=== PATIENT | male | born 1985 | race Two or more races ===

== ENCOUNTER 2019-11-06 15:42 | Emergency (ER) | payer OTHER ==
--- NOTE | 2019-11-06 16:57 | PDOC ---
History of Present Illness - General Chief Complaint: Allergic Reaction Stated Complaint: DYSTONIC REACTION Time Seen by Provider: 11/06/19 16:56 - History of Present Illness Initial Comments: 11/06/19 17:34 HPI: 34 y/o M with hx of IV heroine use presenting from [facility] for dystonic reaction. He reports that he was at [facility] yesterday and received methadone. It appears he was agitated and also received ativan and fluphenazine (hx of dystonia on haldol). This morning patient was noted with dystonic rxn including tongue biting, increased salivation, and "felt like my face was having a seizure." He was sent from [facility] for dystonia and methadone; according to [facility], they do not admit for detox for patient already on a methadone program, despite still using IV heroine. He last used IVheroine 2 days ago. En route, he received 50mg benadryl and 2.5mg versed by EMS. He is currently sleepy but appropriate and arousable and asnwers all questions. He has no current complaints. He states the reaction has resolved but feels sleepy. Denies fever, PRAJAPATI, LH, chest pain, SOB, abd pain, n/v. PMHx: as noted above ROS: as noted SHx: 1ppd tobacco use; no alcohol use; IV heroine Allergies: NKDA ROS: GENERAL/CONSTITUTIONAL: No fever; +chills. No weakness. HEAD, EYES, EARS, NOSE AND THROAT: No change in vision. No ear pain or discharge. No sore throat. CARDIOVASCULAR: No chest pain or shortness of breath RESPIRATORY: No cough, wheezing, or hemoptysis. GASTROINTESTINAL: No nausea, vomiting, diarrhea or constipation. GENITOURINARY: No dysuria, frequency, or change in urination. MUSCULOSKELETAL: No joint or muscle swelling or pain. No neck or back pain. SKIN: No rash NEUROLOGIC: No headache, vertigo, loss of consciousness, or change in strength/ sensation. ENDOCRINE: No increased thirst. No abnormal weight change HEMATOLOGIC/LYMPHATIC: No anemia, easy bleeding, or history of blood clots. ALLERGIC/IMMUNOLOGIC: No hives or skin allergy. PE: GENERAL: Awake, sleepy but arousable and a&ox3, no acute distress HEAD: No signs of trauma, normocephalic, atraumatic EYES: EOMI, sclera anicteric, conjunctiva clear ENT: Auricles normal inspection, hearing grossly normal, nares patent, oropharynx clear without exudates. Moist mucosa NECK: Normal ROM, no lymphadenopathy LUNGS: No increased work of breathing, symmetrical chest rise, clear to auscultation bilaterally, no wheezes, crackles or rhonchi HEART: Regular rate, regular rhythm, normal S1 and S2, no murmur, peripheral pulses 2+ and equal bilaterally. ABDOMEN: Soft, nondistended, nontender, normoactive bowel sounds. No guarding, no rebound. No masses. No CVAT MUSCULOSKELETAL: FROM. track curiel on BL arms NEUROLOGICAL: Cranial nerves II through XII grossly intact. Normal speech, normal gait, no focal sensorimotor deficits SKIN: Warm, Dry, normal turgor, no rashes or lesions noted Medical Decision Making - Medical Decision Making 11/06/19 17:40 34 y/o M with hx of IV heroine use presenting from [facility] for dystonic reaction, now resolved following 50mg benadryl and 2.5mg versed by EMS. Currently with no complaints. HR 120, normotensive, AF. PE with rigors, but otherwise unremarkable. -will allow for versed to wear off and then DC to followup with [facility] for further methadone tapering 11/06/19 19:19 patient given info for [facility] and will DC with [facility] to followup with methadone program n the AM patient ambulating without assist, a&ox3, tolerating PO and appropriate Discharge - Discharge Information Problems reviewed: Yes Clinical Impression/Diagnosis: Dystonic drug reaction Condition: Stable Disposition: HOME - Follow up/Referral Referrals: ON STAFF,NOT [Primary Care Provider] - - Patient Discharge Instructions Patient Printed Discharge Instructions: Focal Dystonia Additional Instructions: Additional Instructions: Please return to the emergency department with any new or worsening symptoms or concerns. Please follow up with the methadone program tomorrow morning for tapering and detox - Post Discharge Activity
[2019-11-06 18:17] VITALS: BP 124/81; PULSE 120; TEMP 97.1; BMI 25.8
--- NOTE | 2019-11-06 18:34 | PDOC ---
Documentation entered by Noemí Frausto SCRIBE, acting as scribe for Tatianna Alcala MD. Tatianna Alcala MD: This documentation has been prepared by the Jett gilbert Xhesika, SCRIBE, under my direction and personally reviewed by me in its entirety. I confirm that the documentation accurately reflects all work, treatment, procedures, and medical decision making performed by me. Attending Attestation - Resident Resident Name: Elizabeth Cole - HPI HPI: 11/06/19 17:38 The patient is a 34 year old male with a significant PMH of heroin use (on methadone but buys heroin on the streets) who presents to the emergency department BIBA s/p dystonic reaction. Pt states he received prolixin during intake at [facility] and developed a dystonic reaction. Per EMS, patient received 50mg Benadryl and 2.5 versed and symptoms have since resolved. The patient denies chest pain, shortness of breath, headache and dizziness. Denies fever, chills, cough, nausea, vomiting, diarrhea and constipation. Allergies: haldol Social Hx: heroin use - Physicial Exam PE: 11/06/19 17:39 GENERAL: Awake, alert, conversent. +shaky. +disheveled. HEAD: No signs of trauma EYES: PERRLA, EOMI, sclera anicteric, conjunctiva clear ENT: Auricles normal inspection, hearing grossly normal, nares patent, oropharynx clear without exudates. Moist mucosa NECK: Normal ROM, supple, no lymphadenopathy, JVD, or masses LUNGS: Breath sounds equal, clear to auscultation bilaterally. No wheezes, and no crackles HEART: Regular rate and rhythm, normal S1 and S2, no murmurs, rubs or gallops ABDOMEN: Soft, nontender, normoactive bowel sounds. No guarding, no rebound. No masses EXTREMITIES: Normal range of motion, no edema. No clubbing or cyanosis. No cords, erythema, or tenderness NEUROLOGICAL: Cranial nerves II through XII grossly intact. +unsteady gait SKIN: Warm, Dry, normal turgor. +b/l upper extremity (arms) track curiel. - Medical Decision Making 11/06/19 18:32 [facility] was contacted in this patient was refused to detox He is on a methadone program already and buying street drugs Patient is taking p.o., drinking fluids His mother was called and the family lives in [place] Dystonic reaction resolved with [facility] Plan discharge home
== END 2019-11-06 19:22 | disposition home or self-care (01) ==
LOC: JER 15:42
DX: G24.02 Drug induced acute dystonia (principal); F11.20 Opioid dependence, uncomplicated; F17.210 Nicotine dependence, cigarettes, uncomplicated
CPT/HCPCS: 99282-25